=== PATIENT | male | born 2000 | race Two or more races ===

== ENCOUNTER 2020-09-26 06:00 | Day surgery (SDC) | payer OTHER ==
[2020-09-26] MEDS ORDERED: DICLOFENAC SODI75 MG PO (10:45)
[2020-09-26] MEDS ORDERED: LEVSIN/SL0.125 MG SL (10:45)
[2020-09-26] MEDS ORDERED: PROTONIX40 MG PO (10:45)
[2020-09-26] MEDS ORDERED: PERCOCET 5-3251 EACH PO (10:45)
[2020-09-26] MEDS ORDERED: ZOFRAN4 MG PO (10:45)
== END 2020-09-26 15:55 | disposition home or self-care (01) ==
LOC: CIR.AMB 06:00
PROVIDERS: ATTEND Surgery
DX: K81.1 Chronic cholecystitis (principal); Z20.822 Contact with and (suspected) exposure to COVID-19